=== PATIENT | male | born 1940 | race Caucasian/White ===

== ENCOUNTER 2020-04-14 11:04 | Outpatient (CLI) | payer MEDICARE, OTHER, SELFPAY ==
[2020-04-14 11:33] LABS: Basophils Percent Auto 0.4 % (0.2-1.2); Eosinophils Absolute Auto 0.1 K/mm3 (0-0.3); Eosinophils Percent Auto 1.9 % (0-4.4); Hemoglobin 14.8 g/dL (14.0-18.0); Immature Granulocyte Absolute 0.02 K/mm3 (0.00-0.031); Immature Granulocyte Percent A 0.3 % (0-0.5); Immature Reticulocyte Fraction 12.7 % (3.0-15.9); Lymphocytes Absolute Auto 1.38 K/mm3 (0.9-3.2); Mean Corpuscular HGB Conc 32.9 g/dl (32-36); Mean Corpuscular Hemoglobin 30.9 pg (26-34); Mean Corpuscular Volume 93.9 fl (80-100); Mean Platelet Volume 9.3 fl (7.4-10.4); Monocytes Absolute Auto 0.6 K/mm3 (0.1-0.6); Monocytes Percent Auto 8.4 % (2.6-8.5); Neutrophils Absolute Auto 4.8 K/mm3 (1.3-6.7); Platelet Count Result 235 k/mm3 (150-375); Red Blood Count 4.79 M/mm3 (4.6-6.20); Red Cell Distribution Width 13.4 % (11.5-14.5); Reticulocyte Hemoglobin Conten 36.1 pg (28.2-35.7); Reticulocyte Percent 2.18 % (0.7-4.3); White Blood Count 6.9 K/mm3 (4.5-10.0)
[2020-04-14 14:40] LABS: Iron 117 ug/dL (49-181)
[2020-04-14 14:47] LABS: Alanine Aminotransferase 31 U/L (4-50); Albumin Level 4.4 g/dL (3.5-5.1); Alkaline Phosphatase 111 U/L (38-126); Anion Gap 5 mmol/L (8-16); Aspartate Amino Transferase 41 U/L (17-59); Blood Urea Nitrogen 13 mg/dL (9-20); Calcium 9.7 mg/dL (8.4-10.2); Carbon Dioxide 35 mmol/L (22-30); Chloride 102 mmol/L (98-107); Estimated Glomerular Filt Rate > 60; Glucose 100 mg/dL (75-110); Lactate Dehydrogenase 633 U/L (313-618); Potassium 4.5 mmol/L (3.4-5.0); Sodium 142 mmol/L (137-145)
[2020-04-14 14:58] LABS: Percent Iron Saturation 26 % (20-50)
[2020-04-14 15:53] LABS: Folic Acid > 20.0 ng/mL (2.76->20)
== END 2020-04-14 11:05 | disposition home or self-care (01) ==
PROVIDERS: Visit Provider Internal Medicine Hematology & Oncology
DX: D64.9 Anemia, unspecified (principal)
CPT/HCPCS: 36415; 80053; 82607; 82746; 83540; 83550; 83615; 85025; 85046

== ENCOUNTER 2020-06-02 09:19 | Outpatient (CLI) | payer MEDICARE, OTHER, SELFPAY ==
--- NOTE | ~2020-06-02 | CT_ITS ---
EXAMINATION: CT abdomen wo/w con DATE: 06/02/2020 10:02 INDICATION: Renal mass TECHNIQUE: Computed tomography (CT) of the abdomen was performed without intravenous contrast. Automa miriam exposure control and iterative reconstruction technique were employed. Exam dose: 622.32 mGy-cm total exam DLP. COMPARISON: 06/04/2019, 11/21/2018, CT abdomen examination are recommended. FINDINGS: There is mild interval enlargement of upper pole right renal heterogeneous hypoenhancing ma ss, currently measuring up to approximately 2 x 2.5 cm, with irregular margins. This is most consiste nt with hypernephroma. There are focal areas of bilateral renal scarring and suggestion of bilateral occasional small renal cysts. Small stones are noted in the dependent aspect of the gallbladder. No gallbladder wall giving or abno rmal pericholecystic fluid or fat stranding. No hepatic, splenic, pancreatic or adrenal space-occupying mass lesion. There is atherosclerotic calcification of the abdominal aorta and branches but no abdominal aortic an eurysm. Particularly prominent calcification of the proximal left renal artery. No intraperitoneal or retroperitoneal mass lesion or adenopathy or ascites. No bowel obstruction, bowel wall thickening, pneumatosis or intraperitoneal free air. There is a small fat and fluid containing umbilical hernia. Diffuse idiopathic skeletal hyperostosis of the lower thoracic spine. There is prominent degenerative change of the facet joints of the lumbar spine with associated grade 1 anterolisthesis at L4-5. 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 There is mild infiltrate or atelectasis at the left lung base. IMPRESSION: Enlarging irregular heterogeneous hypoenhancing right upper pole renal mass, most consis tent with hypernephroma Cholelithiasis Reviewed, dictated and finalized at [facility] Reviewed, dictated and finalized at [facility] [employer] IMPRESSION: Enlarging irregular heterogeneous hypoenhancing right upper pole r enal mass, most consistent with hypernephroma Cholelithiasis
[2020-06-02 09:50] LABS: Estimated Glomerular Filt Rate > 60
== END 2020-06-02 09:20 | disposition home or self-care (01) ==
PROVIDERS: Visit Provider Urology
DX: N28.89 Other specified disorders of kidney and ureter (principal); K80.20 Calculus of gallbladder without cholecystitis without obstruction
CPT/HCPCS: 74170; Q9967